=== PATIENT | male | born 1950 | race Caucasian/White ===

== ENCOUNTER 2016-03-15 19:26 | Observation (INO) | payer BC ==
[~2016-03-15] VITALS: Ht 185.4 cm; Wt 92.6 kg
[~2016-03-15 19:26] MED LIST: ASPI-535 PO; DILT300C36 PO; FENO145T25 PO; ISOS120T PO; LANS30TA6 PO; NIAC750T PO; VALS1TAB60 PO
--- NOTE | 2016-03-15 21:26 | ERA ---
ER Documentation Chief Complaint Date/Time DATE: 03/15/16 TIME: 21:25 Chief Complaint Chest pain HPI The patient is a 66-year-old male, presenting to the ER because of epigastric and sternal chest pain that began about 7 PM, not relieved with 2 nitroglycerin , however relieved with antacid. The symptoms lasted for approximately 3-5 minutes. He denies chest pain now. He does not remember whether he has similar symptoms previously; he is getting over a cold. He denies facial pain, chest pain with exertion or vomiting diaphoresis, palpitation. He denies abdominal pain, vomiting, dysuria, diarrhea. He does not smoke, drinks socially Past medical history: Hypertension, dyslipidemia, aortic stenosis, mitral valve prolapse, GERD, Prinzmetal angina Past surgical history: Parotid and testicular benign tumor removal, he had 2 negative cardiac angiogram in 2008 and 2002 according to him ROS All systems reviewed and are negative except as per history of present illness. Medications Home Meds Reported Medications Valsartan-Hydrochlorothiazide (Valsartan-HCTZ) 320-25 Mg Tablet, 1 TAB PO DAILY , #30 TAB 03/15/16 Pravastatin Sodium* (Pravastatin Sodium*) 20 Mg Tablet, 20 MG PO HS, TAB 03/15/16 Aspirin Ec (Aspir 81) 81 Mg Tablet.dr, 81 MG PO DAILY 06/21/13 Isosorbide Mononitrate* (Imdur*) 120 Mg Tab.sr.24h, 120 MG PO BID 06/21/13 Diltiazem Hcl* (Taztia XT*) 300 Mg Capsule.sa, 300 MG PO DAILY 06/21/13 Lansoprazole* (Prevacid* ODT) 30 Mg/Bottle Tab.rap.dr, 30 MG PO DAILY 06/21/13 Discontinued Reported Medications Niacin* (Niaspan*) 750 Mg Tablet.sa, 500 MG PO 06/21/13 Valsartan-Hydrochlorothiazide (Diovan HCT) 1 Tab Tablet, 1 TAB PO DAILY 06/21/13 Fenofibrate Nanocrystallized* (Tricor*) 145 Mg Tablet, 145 MG PO 06/21/13 Allergies Allergies: Coded Allergies: ampicillin (Verified Allergy, Severe, HIVES, 03/15/16) clindamycin (Verified Allergy, Severe, HIVES, 03/15/16) moxifloxacin (Verified Allergy, Severe, RASH,SWELLING OF HANDS,ROMARIO CARDIA, 03/15/16) sulfamethoxazole (Verified Allergy, Severe, HIVES, 03/15/16) trimethoprim (Verified Allergy, Severe, HIVES, 03/15/16) amoxicillin (Verified Allergy, Mild, STUFFY NOSE&TINGLING@UPPER LIP, ) azithromycin (Verified Allergy, Mild, HIVES, 03/15/16) cephalexin (Verified Allergy, Mild, HIVES, 03/15/16) ciprofloxacin (Verified Allergy, Mild, GI UPSET, 03/15/16) doxycycline (Verified Allergy, Mild, ITCHING, 03/15/16) erythromycin base (Verified Allergy, Mild, ITCHING, 03/15/16) tetracycline (Verified Allergy, Mild, ITCHING, 03/15/16) Nqztrjz-Lwg-Nam Reductase Inhibitor (Verified Adverse Reaction, Severe, WEAKNESS, 03/15/16) STATINS MEDS PMhx/Soc History of Surgery: Yes (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 Head: Atraumatic. Eyes: Normal Conjunctiva. ENT: Normal External Ears, Nose and Mouth. Neck: Full range of motion. No meningismus. Resp: Clear to auscultation bilaterally. Cardio: Regular rate and rhythm, no murmurs. Abd: Soft, non distended, normal bowel sounds, non tender. Skin: No petechiae or rashes. Back: No midline or flank tenderness. Ext: No cyanosis, or edema. Neur: Awake and alert. No focal deficit Psych: Normal Mood and Affect. Result Diagram: 03/15/160 Results 24 hrs Laboratory Tests Test 03/15/16 21:30 Activated Partial Thromboplast Time 32.6Sec Anion Gap 19 Blood Urea Nitrogen 17mg/dl Calcium Level 9.8mg/dl Carbon Dioxide Level 29mmol/L Chloride Level 99mmol/L Creatinine 0.88mg/dl Glucose Level 104mg/dl INR International Normalized Ratio 1.03 Potassium Level 3.8mmol/L Prothrombin Time 13.5Sec Prothrombin Time Ratio 1.1 Sodium Level 143mmol/L Troponin I < 0.012ng/ml Current Medications Medications (Trade) Dose Ordered Sig/Madie Route PRN Reason Start Time Stop Time Status Last Admin Dose Admin Aspirin (Aspirin) 325 mg ONCE ONCE PO 03/15/16 22:00 03/15/16 22:01 DC 03/15/16 21:53 Nitroglycerin (Nitroglycerin 2% Oint) 1 inch ONCE ONCE TD 03/15/16 22:00 03/15/16 22:01 DC 03/15/16 21:53 Procedures/MDM EKG: Read by emergency physician at 7:35 PM Rate/Rhythm: Normal Sinus Rhythm 96 beats per min QRS, ST, T-waves: No ST elevation, no T wave inversion, incomplete right bundle branch block Impression: Abnormal EKG EKG: Read by emergency physician at 10:10 P Rate/Rhythm: Normal Sinus Rhythm 81 beats per min QRS, ST, T-waves: No ST elevation, no T wave inversion, incomplete right bundle branch block Impression: Abnormal EKG CBC and chest x-ray are pending MEDICAL MAKING DECISION: The patient is a 66-year-old male, with multiple cardiac risk factors, presenting with acute chest pain, most likely GERD, however cannot exclude ACS. He was treated with aspirin 325 mg p.o., 1 inch of nitroglycerin ointment to the chest wall with good response The differential diagnoses considered include but are not limited to acute coronary syndrome, acute myocardial infarction, pericarditis, pulmonary embolism , aortic dissection, pneumonia, pleural effusion, pneumothorax, GERD, chest wall pain. Departure Diagnosis: Primary Impression: Chest pain Condition: Stable Comments I discussed the findings with the patient. I discussed the patient with the hospitalist at the [facility] who was made aware of the lab, the treatment, the patient condition. The patient is admitted to telemetry for 24 hours observation at 10:45 PM RENEA ORTEGA MD Mar 15, 2016 21:26
[2016-03-15] MEDS ORDERED: NITROGLYCERIN 2% 1 GM OINT PKT TD ONE (22:00)
[2016-03-15] MEDS ORDERED: ASPIRIN 325 MG TAB PO ONE (22:00)
[2016-03-15 22:21] LABS: CHLORIDE 99 mmol/L (97-110); SODIUM 143 mmol/L (135-144)
[2016-03-15 22:22] LABS: POTASSIUM 3.8 mmol/L (3.5-5.1)
[2016-03-15] MEDS ORDERED: PRAV20TA63 PO (22:23)
[2016-03-15 22:24] LABS: ANION GAP 19 (8-16); BLOOD UREA NITROGEN 17 mg/dl (7-20); CARBON DIOXIDE 29 mmol/L (21-31); CREATININE 0.88 mg/dl (0.61-1.24)
[2016-03-15 22:25] LABS: CALCIUM 9.8 mg/dl (8.4-10.2); GLUCOSE 104 mg/dl (70-220)
[2016-03-15] MEDS ORDERED: VALS1TAB82 PO (22:26)
[2016-03-15 22:39] LABS: TROPONIN-I < 0.012 ng/ml (0.00-0.12)
[2016-03-15 22:41] LABS: INR 1.03; PROTIME 13.5 Sec (12.2-14.2); PT RATIO 1.1
[2016-03-15 22:42] LABS: PARTIAL THROMBOPLASTIN TIME 32.6 Sec (25.0-35.0)
[2016-03-15 23:16] LABS: EOSINOPHILS % 3.4 % (0.0-7.0); HEMATOCRIT 40.3 % (42.0-52.0); HEMOGLOBIN 13.8 g/dl (14.0-18.0); LYMPHOCYTES % 23.3 % (15.0-51.0); MEAN CORPUSCULAR HEMOGLOBIN 35.1 pg (29.0-33.0); MEAN CORPUSCULAR HGB CONC 34.1 g/dl (32.0-37.0); MEAN CORPUSCULAR VOLUME 102.5 fl (82.0-101.0); MONOCYTES % 10.4 % (0.0-11.0); NEUTROPHILS % 59.7 % (39.0-77.0); PLATELET COUNT 490 10^3/UL (140-440); RED BLOOD COUNT 3.93 10^6/ul (4.70-6.10); UNCORRECTED WBC 5.7 10^3/ul (4.8-10.8); WHITE BLOOD COUNT 5.7 10^3/ul (4.8-10.8)
[2016-03-15 23:17] LABS: BASOPHIL # 0.1 10^3/ul (0.0-0.1); BASOPHILS % 2.5 % (0.0-2.0); EOSINOPHILS # 0.2 10^3/ul (0.0-0.5); LYMPHOCYTES # 1.3 10^3/ul (0.8-2.9); MONOCYTE # 0.6 10^3/ul (0.3-0.9); NEUTROPHIL # 3.4 10^3/ul (1.6-7.5)
[2016-03-15] MEDS ORDERED: DOCUSATE SODIUM 100 MG CAP PO PRN (23:30)
[2016-03-15] MEDS ORDERED: ONDANSETRON 4 MG INJ IV PRN (23:30)
[2016-03-15] MEDS ORDERED: NITROGLYCERIN (SL) 0.4 MG TAB SL PRN (23:30)
[2016-03-15] MEDS ORDERED: ZOLPIDEM 5 MG TAB PO PRN (23:30)
[2016-03-15] MEDS ORDERED: morphine 2 MG INJ IV PRN (23:30)
[2016-03-15] MEDS ORDERED: NACL 0.9% 3 ML SYG IV SCH (23:30)
[2016-03-15] MEDS ORDERED: LORAZEPAM 2 MG INJ IV PRN (23:30)
[2016-03-15] MEDS ORDERED: ACETAMINOPHEN 325 MG TAB PO PRN (23:30)
--- NOTE | 2016-03-15 23:37 | RADRPT ---
PROCEDURE: XR Chest. CLINICAL INDICATION: Chest pain. TECHNIQUE: AP view of the chest was obtained. COMPARISON: 06/21/2013 FINDINGS: The cardiomediastinal silhouette is within normal limits. There is mild prominence of the epicardial fat pad, normal variant. The lungs are clear. No signs of pleural fluid or pneumothorax are seen. The osseous structures and soft tissues are unremarkable. IMPRESSION: 1. No evidence for active cardiopulmonary disease. RPTAT: HGAS .Gustavo Hinojosa MD, Date Time Electronically viewed and signed by .Gustavo Hinojosa MD, on 03/15/2016 23:37 .S/
--- NOTE | 2016-03-15 23:46 | HP ---
Date/Time of Note Date/Time of Note DATE: 03/15/16 TIME: 23:36 Assessment/Plan VTE Prophylaxis VTE Prophylaxis Intervention: LMWH Lines/Catheters IV Catheter Type (from Nrs): Saline Lock Assessment/Plan Assessment/Plan 66 yo male with a past medical history of essential hypertension, dyslipidemia, Prinzmetal's angina, mild who presents with chest pain for the last couple of days. 1. Chest pain - ACS vs bronchitis - will admit the patient to telemetry for observation, consult cardiology Dr. French, cycle cardiac markers, obtain a 2D- ECHO, check TSH/Mag levels, serial enzymes, Morphine/Oxygen/NTG/Aspirin 2. Bronchitis - early pneumonia - will start doxycycline 100 mg po bid x 10 days total 3. Essential hypertension - continue with diltiazem 4. Prinzmetal's Angina - continue with imdur/diltiazem, statin 5. Mild -monitor fluids 6. GI ppx - pepcid 7. DVT ppx - lovenox answered all of his questions. as per clinical course. this history and physical took greater then 45 minutes to complete HPI/ROS Admit Date/Time Admit Date/Time 03/15/2016, 11:36 pm Hx of Present Illness 66 yo male with a past medical history of essential hypertension, dyslipidemia, Prinzmetal's angina, mild who presents with chest pain for the last couple of days. He states that the chest pain is substernal, associated with left jaw pain, otherwise non-radiating, 6/10 in intensity, took sublingual nitroglycerin with no alleviation of the pain, lasting about 5 minutes in duration, stopped after taking antacids. Denies any shortness of breath, loss of consciousness, headaches, urinary/bowel irregularities, nausea/vomiting/diarrhea/constipation, diaphoresis, or dizziness. Upon further questioning, the patient has been battling cold like symptoms, including a productive cough with greenish sputum production, intermittent fevers/chills, no sick contacts. ED course: nitropaste, aspirin ROS 14 point review of systems completed, please refer to HPI for any positive findings PMH/Family/Social Past Medical History Medical History: angina (prinzmentals), coronary artery disease, high cholesterol, hypertension Past Surgical History right parotid gland surgery for tumor, left testicular nodule removed Family History Significant Family History: heart disease (father - [place] age 51), hypertension ( father) Social History Alcohol Use: rarely Smoking Status: Never smoker Drug Use: none Exam/Review of Systems Vital Signs Vitals Vital Signs Date Time Temp Pulse Resp B/P Pulse Ox O2 Delivery O2 Flow Rate FiO2 03/15/16 23:09 89 16 146/89 98 Room Air 03/15/16 19:30 98.4 Exam Exam Gen [place]: mild distress 2/2 to chest discomfort, AAOx4 HEENT: NC/AT, PERRLA, EOMI, no pharyngeal erythema, no tonsillar exudates, no lymphadenopathy, no JVD, no carotid bruits NECK: supple, no thyromegaly THORAX: symmetrical, no obvious deformities CV: S1S2, RRR, no M/G/R Lungs: CTAB no W/C/R/R Abd: soft, NT/ND, +BS, no rebound, no guarding, neg HSM EXT: no edema, no ecchymosis, no clubbing, FROM Neuro: CN II-XII grossly intact, no focal deficits Psych: good mentation, alert and oriented, good mood and affect Skin: C/D/I Labs Result Diagram: 03/15/16212903/15/162129 Medications Medications Current Medications Lorazepam (Ativan) 0.5 mg Q6H PRN IV ANXIETY; Start 03/15/16 at 23:30; Status UNV Ondansetron HCl (Zofran Inj) 4 mg Q6H PRN IV NAUSEA AND/OR VOMITING; Start at 23:30; Status UNV Nitroglycerin (Nitroglycerin (Sl Tab) 0.4 Mg) 1 tab Q5M PRN SL CHEST PAIN; Start 03/15/16 at 23:30; Status UNV Acetaminophen (Tylenol Tab) 650 mg Q6H PRN PO PAIN LEVEL 1-3 OR FEVER; Start at 23:30; Status UNV Morphine Sulfate (morphine) 2 mg Q4H PRN IV PAIN LEVEL 7-10; Start 03/15/16 at 23:30; Status UNV Zolpidem Tartrate (Ambien) 5 mg QHS PRN PO INSOMNIA; Start 03/15/16 at 23:30; Status UNV Docusate Sodium (Colace) 100 mg Q12H PRN PO CONSTIPATION; Start 03/15/16 at 23: 30; Status UNV Famotidine (Pepcid) 20 mg Q12 PO ; Start 03/16/16 at 09:00; Status UNV Enoxaparin Sodium (Lovenox) 40 mg DAILY SC ; Start 03/16/16 at 09:00; Status UNV Aspirin (Halfprin) 81 mg DAILY PO ; Start 03/16/16 at 09:00; Status UNV Diltiazem HCl (Cardizem Cd) 300 mg DAILY PO ; Start 03/16/16 at 09:00; Status UNV Isosorbide Mononitrate (Imdur) 120 mg BID PO ; Start 03/16/16 at 09:00; Status UNV Miscellaneous Information 20 mg HS PO ; Start 03/16/16 at 21:00; Status UNV Miscellaneous Information 1 tab DAILY PO ; Start 03/16/16 at 09:00; Status UNV Doxycycline Hyclate (Vibramycin) 100 mg BID PO ; Start 03/16/16 at 09:00; Status UNV Procedures Procedures CXR IMPRESSION: 1. No evidence for active cardiopulmonary disease. EKG: reviewed, no ST or T wave changes noted ERIC GONZALEZ MD Mar 15, 2016 23:46
[2016-03-16] VITALS (9 sets, daily range): BP systolic 116–136; BP diastolic 77–81; PULSE 71–93; RESP 18–20; Ht 185.4 cm; Wt 92.6 kg
[2016-03-16 00:08] LABS: CHOL/HDL RATIO 4.2 RATIO
[2016-03-16 00:39] LABS: THYROID STIMULATING HORMONE 1.75 MIU/L (0.465-4.680)
[2016-03-16 05:31] LABS: BASOPHILS % 0.8 % (0.0-2.0); EOSINOPHILS # 0.2 10^3/ul (0.0-0.5); EOSINOPHILS % 3.7 % (0.0-7.0); HEMATOCRIT 36.2 % (42.0-52.0); HEMOGLOBIN 12.5 g/dl (14.0-18.0); LYMPHOCYTES # 1.3 10^3/ul (0.8-2.9); LYMPHOCYTES % 30.4 % (15.0-51.0); MEAN CORPUSCULAR HEMOGLOBIN 35.7 pg (29.0-33.0); MEAN CORPUSCULAR HGB CONC 34.5 g/dl (32.0-37.0); MEAN CORPUSCULAR VOLUME 103.5 fl (82.0-101.0); MEAN PLATELET VOLUME 9.6 fl (7.4-10.4); MONOCYTE # 0.4 10^3/ul (0.3-0.9); NEUTROPHIL # 2.4 10^3/ul (1.6-7.5); NEUTROPHILS % 56.1 % (39.0-77.0); PLATELET COUNT 427 10^3/UL (140-440); RED BLOOD COUNT 3.49 10^6/ul (4.70-6.10); RED CELL DISTRIBUTION WIDTH 14.9 % (11.5-14.5); UNCORRECTED WBC 4.4 10^3/ul (4.8-10.8); WHITE BLOOD COUNT 4.4 10^3/ul (4.8-10.8)
[2016-03-16 05:56] LABS: POTASSIUM 3.8 mmol/L (3.5-5.1)
[2016-03-16 05:59] LABS: CREATININE 0.95 mg/dl (0.61-1.24)
[2016-03-16 06:00] LABS: CALCIUM 9.3 mg/dl (8.4-10.2)
[2016-03-16 06:17] LABS: CONDITION 1; LH ANALYZER COMMENTS 1
[2016-03-16 06:35] LABS: CREATINE KINASE 81 IU/L (23-200)
[2016-03-16 06:56] LABS: CK-MB 0.93 ng/ml (0.0-2.4); TROPONIN-I < 0.012 ng/ml (0.00-0.12)
[2016-03-16 08:11] LABS: FOLATE > 20.0 ng/ml (2.8-20.0)
[2016-03-16] MEDS: ENOXAPARIN 40 MG/0.4 ML SYG SC SCH ×2 (08:41→08:49)
--- NOTE | 2016-03-16 08:44 | CONS ---
Date/Time of Note Date/Time of Note DATE: 03/16/16 TIME: 08:41 Assessment/Plan Assessment/Plan Additional Assessment/Plan 1. Chest pain - atypicl 2. Bronchitis - doxycycline 100 mg po bid x 10 days total 3. Essential hypertension - continue with diltiazem 4. Prinzmetal's Angina - continue with imdur/diltiazem, statin 5. Mild -monitor fluids -atypical chest pain, nromal trops, no exertional symtoms and no acute ischemia by ekg -no further work up -d/c plan ok -fu dr to one week Consultation Date/Type/Reason Admit Date/Time 03/15/2016, 11:36 pm Hx of Present Illness The patient wtih hx of prinzmetial angina with no exertional angina but on DOA had epigastric pain for 30 mintues with no assoicated symptoms and relieved with antactids. He can walk 30 minutes without symptms and has had no recurrecne and currently stabl eiwth nmomal trops and nonspefic ekg Past Medical History Medical History: angina (prinzmentals), coronary artery disease, high cholesterol, hypertension Social History Alcohol Use: rarely Smoking Status: Never smoker Drug Use: none Exam/Review of Systems Vital Signs Vitals Vital Signs Date Time Temp Pulse Resp B/P Pulse Ox O2 Delivery O2 Flow Rate FiO2 03/16/16 08:08 98.0 87 20 133/78 97 03/16/16 03:04 Room Air Intake and Output 03/15/16 03/15/16 03/16/16 15:00 23:00 07:00 Intake Total 400 ml Balance 400 ml Results Result Diagram: 03/16/16 0415 03/16/16 0415 Results 24 hrs Laboratory Tests Test 03/15/16 21:30 03/16/16 04:15 Activated Partial Thromboplast Time 32.6 Anion Gap 19 H 15 Basophils # 0.1 0.0 Basophils % 2.5 H 0.8 Blood Urea Nitrogen 17 15 Calcium Level 9.8 9.3 Carbon Dioxide Level 29 30 Chloride Level 99 101 Cholesterol Level 153 Cholesterol/HDL Ratio 4.2 Creatinine 0.88 0.95 Eosinophils # 0.2 0.2 Eosinophils % 3.4 3.7 Glucose Level 104 163 HDL Cholesterol 36 Hematocrit 40.3 L 36.2 L Hemoglobin 13.8 L 12.5 L Hemoglobin A1c 5.5 INR International Normalized Ratio 1.03 LDL Cholesterol, Calculated 90 Lymphocytes # 1.3 1.3 Lymphocytes % 23.3 30.4 Magnesium Level 2.0 Mean Corpuscular Hemoglobin 35.1 H 35.7 H Mean Corpuscular Hemoglobin Concent 34.1 34.5 Mean Corpuscular Volume 102.5 H 103.5 H Mean Platelet Volume 9.6 Monocytes # 0.6 0.4 Monocytes % 10.4 9.0 Neutrophils # 3.4 2.4 Neutrophils % 59.7 56.1 Nucleated Red Blood Cells # 0.0 0.0 Nucleated Red Blood Cells % 0.0 0.0 Platelet Count 490 H 427 Potassium Level 3.8 3.8 Prothrombin Time 13.5 Prothrombin Time Ratio 1.1 Red Blood Count 3.93 L 3.49 L Red Cell Distribution Width 14.9 H Sodium Level 143 142 Thyroid Stimulating Hormone (TSH) 1.750 Triglycerides Level 136 Troponin I < 0.012 < 0.012 White Blood Count 5.7 4.4 #L Blood Morphology Comment Creatine Kinase 81 Creatine Kinase Index 1.1 Creatinine Kinase MB (Mass) 0.93 Folate > 20.0 H Vitamin B12 Level 539 Medications Medications Current Medications Lorazepam (Ativan) 0.5 mg Q6H PRN IV ANXIETY; Start 03/15/16 at 23:30 Ondansetron HCl (Zofran Inj) 4 mg Q6H PRN IV NAUSEA AND/OR VOMITING; Start at 23:30 Nitroglycerin (Nitroglycerin (Sl Tab) 0.4 Mg) 1 tab Q5M PRN SL CHEST PAIN; Start 03/15/16 at 23:30 Acetaminophen (Tylenol Tab) 650 mg Q6H PRN PO PAIN LEVEL 1-3 OR FEVER; Start at 23:30 Morphine Sulfate (morphine) 2 mg Q4H PRN IV PAIN LEVEL 7-10; Start 03/15/16 at 23:30 Zolpidem Tartrate (Ambien) 5 mg QHS PRN PO INSOMNIA; Start 03/15/16 at 23:30 Docusate Sodium (Colace) 100 mg Q12H PRN PO CONSTIPATION; Start 03/15/16 at 23: 30 Famotidine (Pepcid) 20 mg Q12 PO Last administered on 03/16/16 08:37; Admin Dose 20 MG; Start 03/16/16 at 09:00 Enoxaparin Sodium (Lovenox) 40 mg DAILY SC ; Start 03/16/16 at 09:00 Aspirin (Halfprin) 81 mg DAILY PO Last administered on 03/16/16 08:37; Admin Dose 81 MG; Start 03/16/16 at 09:00 Diltiazem HCl (Cardizem Cd) 300 mg DAILY PO ; Start 03/16/16 at 09:00 Isosorbide Mononitrate (Imdur) 120 mg BID PO Last administered on 03/16/16 08: 36; Admin Dose 120 MG; Start 03/16/16 at 09:00 Miscellaneous Information 20 mg HS PO ; Start 03/16/16 at 21:00; Status UNV Valsartan (Diovan) 320 mg DAILY PO Last administered on 03/16/16 08:37; Admin Dose 320 MG; Start 03/16/16 at 09:00 Doxycycline Hyclate (Vibramycin) 100 mg BID PO Last administered on 03/16/16 08:36; Admin Dose 100 MG; Start 03/16/16 at 09:00 Hydrochlorothiazide (Hydrochlorothiazide) 25 mg DAILY PO Last administered on 08:37; Admin Dose 25 MG; Start 03/16/16 at 09:00 Miscellaneous Information (*Order Clarification Bulletin) MEDICATION REQUIRES CLARIFICATI... Q8H XX ; Start 03/16/16 at 05:30; Status Future Hold SABA NO MD Mar 16, 2016 08:44
[2016-03-16] MEDS ORDERED: ASPIRIN (EC) 81 MG TAB PO SCH (09:00)
[2016-03-16] MEDS ORDERED: DILTIAZEM (CD) 300 MG CAP PO SCH (09:00)
[2016-03-16] MEDS ORDERED: VALSARTAN 160 MG TAB PO SCH (09:00)
[2016-03-16] MEDS ORDERED: FAMOTIDINE 20 MG TAB PO SCH (09:00)
[2016-03-16] MEDS ORDERED: HYDROCHLOROTHIAZIDE 25 MG TAB PO SCH (09:00)
[2016-03-16] MEDS ORDERED: DOXYCYCLINE 100 MG TAB PO SCH (09:00)
[2016-03-16] MEDS ORDERED: ISOSORBIDE MONONITRATE(SR)60 MG TAB PO SCH (09:00)
[2016-03-16 12:40] LABS: CREATINE KINASE 78 IU/L (23-200)
[2016-03-16 12:52] LABS: CK-MB 0.55 ng/ml (0.0-2.4); TROPONIN-I < 0.012 ng/ml (0.00-0.12)
--- NOTE | 2016-03-16 13:40 | PDOCDIS ---
Discharge Instructions CONDITION Patient Condition: Good HOME CARE INSTRUCTIONS: Special Diet: cardiac ACTIVITY: Activity Restrictions: No Restrictions FOLLOW UP/APPOINTMENTS Appointments Follow up with PCP as out-pt YAW RADFORD MD Mar 16, 2016 13:40
[2016-03-16] MEDS ORDERED: DOXY100T2 PO (13:44)
[2016-03-16] MEDS ORDERED: NON-FORMULARY/PATIENT OWN MED (Pravastatin Sodium* 20 MG) PO SCH (21:00)
--- NOTE | 2016-03-16 21:48 | DS ---
DATE OF ADMISSION: 03/15/2016 DATE OF DISCHARGE: 03/16/2016 CONSULTANTS: [employer]. DISCHARGE DIAGNOSES: 1. Atypical chest pain, likely secondary to bronchitis versus gastroesophageal reflux disease. The patient was admitted to telemetry where acute coronary syndrome was ruled out by negative troponin. 2. Bronchitis, likely early pneumonia. The patient was started on doxycycline. 3. Essential hypertension. Continue diltiazem. 4. Prinzmetal angina. Continue Imdur, diltiazem and statin. 5. Gastroesophageal reflux disease. Continue proton pump inhibitor. MEDICATIONS: 1. Doxycycline 100 mg p.o. b.i.d. 2. Aspirin 81 mg daily. 3. Diltiazem 30 mg daily. 4. Isosorbide mononitrate 120 mg p.o. b.i.d. 5. Prevacid 30 mg daily. 6. Pravastatin 10 mg daily. 7. Valsartan/hydrochlorothiazide 320/25 one tab p.o. daily. ALLERGIES: 1. STATIN. 2. PENICILLIN. 3. AMPICILLIN. 4. AZITHROMYCIN. 5. . 6. CIPROFLOXIN. 7. CLINDAMYCIN. 8. DOXYCYCLINE. DISPOSITION: Home. DIET: Cardiac diet. ACTIVITY: As tolerated. FOLLOWUP: Follow up with primary care physician as outpatient. Follow up with cardiology as outpat ient. HOSPITAL COURSE: This is a 66-year-old gentleman with past medical history of hypertension, dyslipi demia, Prinzmetal angina, mild , who presented to [facility] secondary to having mid epigastric pain which lasted about 5 minutes. The patient took some nitroglycerin thinking it was possible chest discomfort and the nitroglycerin did not alleviate the pain, although patient too k some antacid medication and the pain alleviated. Although, the patient still presented to [facility] emergency room secondary to having this epigastric pain and the EKG was obtained which showed normal sinus rhythm, left atrial enlargement, incomplete right bundle branch block. Serial t roponins were found to be negative. Cardiology was consulted. The patient was placed on aspirin. Continue statin and his home medication. Cardiology evaluated the patient this morning and acute co ronary syndrome was ruled out with negative troponins and negative EKG. The patient's electrolytes have been normal. Sodium 142, potassium 3.8, chloride 101, bicarbonate 30, BUN 15, creatinine 0.95, glucose 163, calcium 9.3. Triglycerides 136, total cholesterol 153, LDL 90, HDL 36. TSH 1.750. W BC 4.4, hemoglobin 12.5, hematocrit 36.2, platelets 425, MCV 103.5. CONDITION AT TIME OF DISCHARGE: Stable. The patient's vitals are stable with temperature 98.3, pul se 91, respirations 18, blood pressure 133/78, oxygen 95% to 97% in room air. Dictated By: YAW RADFORD MD PN/NTS Conf#: [id number] DID#: [id number]
--- NOTE | 2016-03-17 15:34 | RADRPT ---
Echocardiogram Report Patient Name: ADA LAGOS Gender: Male Date: 1950 Study Date: 16-Mar-2016 Manuscript Editor: Néstor Otto RDCS Location: 525 Ref. Physician: REIC GONZALEZ Quality: Good Procedures: Transthoracic echocardiogram with complete 2D, M-Mode, and doppler examination. Indications: Chest Pain. 2D/M Mode Doppler Measurement Value Normal Ranges Measurement Value Normal Ranges LVIDd 2D 4.7 3.5 - 5.6 cm ENRICO Vmax 2.6 cm2 LVIDs 2D 3.1 2.1 - 4.1 cm ENRICO VTI 2.6 cm2 LVPWd 2D 0.8 0.6 - 1.1 cm AV Mean Brijesh 1.4 m/sec IVSd 2D 0.7 0.6 - 1.1 cm AV Mean PG 9.9 mmHg AoR Diam 2D 3.2 2.0 - 3.7 cm AV Peak Brijesh 2.3 m/sec EDV 2D 103.8 cm3 AV Peak PG 20.5 mmHg ESV 2D 28.6 cm3 AV VTI 40.3 cm LA Dimen 2D 3.8 2.3 - 4.0 cm LVOT Mean Brijesh 1.1 m/sec LVOT Diam 2.1 cm LVOT Mean PG 5.6 mmHg LVOT Peak Brijesh 1.6 m/sec LVOT Peak PG 10.9 mmHg LVOT VTI 34.6 cm MV E Peak Brijesh 0.6 m/sec MV A Peak Brijesh 0.8 m/sec MV E/A 0.8 MV Decel Time 120 msec MV Decel [place] 5 MV E/A 0.8 Findings Left Ventricle: Normal left ventricular systolic function. Normal left ventricular cavity size. Normal left ventricular wall thickness. Ejection fraction is visually estimated at 65 %. Tissue Doppler/Mitral Doppler indices are consistent with impaired relaxation (Stage I diastolic dysfunction). Right Ventricle: Normal right ventricular size. Normal right ventricular systolic function. Left Atrium: The left atrium is normal in size. Right Atrium: The right atrium is normal in size. Mitral Valve: Normal appearance and function of the mitral valve with trace physiologic regurgitation. Aortic Valve: Aortic valve Max velocity 2.26 m/sec. Max PG 20.50 mmHg. Mean PG 9.90 mmHg. Aortic valve area 3.00 cm2. Aortic sclerosis without stenosis. Aortic cusps appear mildly calcified. Trace aortic valve regurgitation. Tricuspid Valve: Normal appearance of the tricuspid valve. Unable to obtain RVSP due to minimal presence of tricuspid regurgitation. Pericardium: Normal pericardium with no significant pericardial effusion. Aorta: Normal aortic root. IVC: Normal size and normal respiratory collapse consistent with normal right atrial pressure. Conclusions 1.Normal left ventricular systolic function. Normal left ventricular cavity size. Normal left ventricular wall thickness. Ejection fraction is visually estimated at 65 %. Tissue Doppler/Mitral Doppler indices are consistent with impaired relaxation (Stage I diastolic dysfunction). 2.Normal appearance and function of the mitral valve with trace physiologic regurgitation. 3.Aortic valve Max velocity 2.26 m/sec. Max PG 20.50 mmHg. Mean PG 9.90 mmHg. Aortic valve area 3.00 cm2. Aortic sclerosis without stenosis. Aortic cusps appear mildly calcified. Trace aortic valve regurgitation. 4.Normal appearance of the tricuspid valve. Unable to obtain RVSP due to minimal presence of tricuspid regurgitation. 5.Normal pericardium with no significant pericardial effusion. Electronically Signed By: Gee Ugalde 17-Mar-2016 15:33:31 -0800 Patient Name: ADA LAGOS Study Date: [id number]
== END 2016-03-16 17:00 | disposition home or self-care (01) ==
LOC: E/R 19:26 → TEL 22:53
PROVIDERS: ADMIT Student in an Organized Health Care Education/Training Program; ATTEND Student in an Organized Health Care Education/Training Program
DX: R07.89 Other chest pain (principal); J40 Bronchitis, not specified as acute or chronic; I10 Essential (primary) hypertension; K21.9 Gastro-esophageal reflux disease without esophagitis; I25.111 Atherosclerotic heart disease of native coronary artery with angina pectoris with documented spasm; E78.5 Hyperlipidemia, unspecified; I35.0 Nonrheumatic aortic (valve) stenosis; Z88.1 Allergy status to other antibiotic agents; Z79.82 Long term (current) use of aspirin; Z82.49 Family history of ischemic heart disease and other diseases of the circulatory system
CPT/HCPCS: 36415; 71010; 80048; 80061; 82550; 82553; 82607; 82746; 83036; 83735; 84443; 84484; 85025; 85610; 85730; 93005; 93306; 99285; G0378; J1650